=== PATIENT | male | born 1970 | race Caucasian/White ===

== ENCOUNTER → 2024-02-08 07:38 | Outpatient (REF) | payer BC, SELFPAY | LOC: RAD 07:38 | PROVIDERS: ATTENDING PHYSICIAN Internal Medicine Gastroenterology; FAMILY PHYSICIAN Family Medicine | DX: R79.89 Other specified abnormal findings of blood chemistry (principal) | CPT/HCPCS: 76700 ==

== ENCOUNTER → 2024-02-16 14:07 | Outpatient (REF) | payer BC, SELFPAY ==
[2024-02-16 15:12] LABS: Iron 94 ug/dl (49-181)
[2024-02-16 15:22] LABS: Percent Saturation 24 % (20-50); Total Iron Binding Capacity 380 ug/dl (261-462)
[2024-02-16 15:48] LABS: Ferritin 39.1 ng/ml (17.9-464.0)
[2024-02-18 15:24] LABS: Alpha-1-Antitrypsin 135 mg/dL (90-200); Ceruloplasmin 25 mg/dL (15-30)
[2024-02-18 19:57] LABS: Mitochondrial M2 Ab, IgG 7.3 Units (0.0-24.9)
[2024-02-18 21:20] LABS: LKM-1 Ab (IgG) 1.6 U (0.0-24.9); Soluble Liver Antigen Ab 2.9 U (0.0-24.9)
== END ==
LOC: REG 14:07
PROVIDERS: ATTENDING PHYSICIAN Internal Medicine Gastroenterology; FAMILY PHYSICIAN Family Medicine
DX: R79.89 Other specified abnormal findings of blood chemistry (principal)
CPT/HCPCS: 36415; 82103; 82390; 82728; 83516; 83540; 83550; 86376; 86381